=== PATIENT | female | born 1995 | race African-American/Black ===

== ENCOUNTER 2022-02-25 19:25 | Day surgery (SDC) | payer OTHER ==
[2022-02-25 19:45] VITALS: BMI 31.4
[2022-02-25] MEDS ORDERED: hydrALAZINE 20 MG/ML VIAL SLOW IVP PRN (19:52)
[2022-02-25 20:40] LABS: Bilirubin Neg (Negative); Blood, Urine Negative (Negative); Clarity Clear (Clear); Glucose, Urine (Dipstick) Normal (Negative); Ketone, Urine 50 mg/dL (Negative); Leukocyte 100 (Negative); Nitrite Negative (Negative); Protein, Urine (Dipstick) Negative (Neg-Trace); pH, Urine 6.5 (5.0-9.0)
[2022-02-25 20:59] LABS: Bacteria/HPF 2+ HPF (None Seen); Mucous/LPF 1+ LPF (<2+); RBC/HPF None Seen HPF (0-3); Squamous Epithelial 0-3 HPF (0-3); Trichomonas/HPF Rare HPF (None Seen); WBC/HPF 0-3 HPF (0-3)
== END 2022-02-25 22:31 | disposition home or self-care (01) ==
LOC: CSHLD/OP 19:25
PROVIDERS: ATTEND Obstetrics & Gynecology
DX: O99.891 Other specified diseases and conditions complicating pregnancy (principal); R10.9 Unspecified abdominal pain; Z3A.22 22 weeks gestation of pregnancy; Z79.899 Other long term (current) drug therapy; Z88.1 Allergy status to other antibiotic agents
CPT/HCPCS: 76815; 81003; 81015

== ENCOUNTER 2022-03-10 00:47 | Day surgery (SDC) | payer OTHER ==
[2022-03-10 01:23] VITALS: BMI 31.5
[2022-03-10] MEDS ORDERED: hydrALAZINE 20 MG/ML VIAL SLOW IVP PRN (01:35)
[2022-03-10 02:03] LABS: Bilirubin Neg (Negative); Blood, Urine 150 (Negative); Clarity Clear (Clear); Glucose, Urine (Dipstick) Normal (Negative); Ketone, Urine Negative (Negative); Leukocyte 25 (Negative); Nitrite Negative (Negative); Protein, Urine (Dipstick) Negative (Neg-Trace); Urobilinogen Normal mg/dL (Less than 2); pH, Urine 6.5 (5.0-9.0)
[2022-03-10 02:04] LABS: Urine Culture Reflex No No
[2022-03-10 02:18] LABS: Bacteria/HPF Rare-Few HPF (None Seen); RBC/HPF 0-3 HPF (0-3); Squamous Epithelial 0-3 HPF (0-3); WBC/HPF 0-3 HPF (0-3)
[2022-03-10] MEDS ORDERED: CEFAZOLIN 1 GM in Sodium Chloride 0.9% 100 ML IVPB SCH (02:45)
[2022-03-10] MEDS ORDERED: Lactated Ringer's 1,000 ML IV SCH (02:45)
== END 2022-03-10 06:30 | disposition home or self-care (01) ==
LOC: CSHLD/OP 00:47
PROVIDERS: ATTEND Obstetrics & Gynecology
DX: O47.02 False labor before 37 completed weeks of gestation, second trimester (principal); O23.42 Unspecified infection of urinary tract in pregnancy, second trimester; N39.0 Urinary tract infection, site not specified; O32.2XX0 Maternal care for transverse and oblique lie, not applicable or unspecified; Z3A.25 25 weeks gestation of pregnancy; Z91.14 Patient's other noncompliance with medication regimen; Z79.2 Long term (current) use of antibiotics; Z79.899 Other long term (current) drug therapy; Z88.1 Allergy status to other antibiotic agents
CPT/HCPCS: 76815; 81001; 87086; 96360; 96361; 99284

== ENCOUNTER 2022-05-18 19:52 | Day surgery (SDC) | payer OTHER ==
[2022-05-18 20:19] VITALS: BMI 31.1
[2022-05-18] MEDS ORDERED: hydrALAZINE 20 MG/ML VIAL SLOW IVP PRN (20:57)
[2022-05-18 21:33] LABS: #Eosinphils 0.1 10x3/uL (0.0-0.5); #Monocytes 1.1 10x3/uL (0.0-1.1); #Neutrophils 7.7 10x3/uL (1.5-8.4); %Basophils 0.3 % (0.0-2.0); %Eosinophils 0.5 % (0.0-6.0); %Lymphocytes 19.7 % (18.0-47.0); %Monocytes 9.5 % (0.0-10.0); %Neutrophils 68.1 % (40.0-75.0); Hemoglobin 10.3 g/dL (12.0-15.5); Mean Corpuscular HGB CONC 35.2 g/dL (32.0-36.0); Mean Corpuscular Hemoglobin 30.1 pg (27.0-33.0); Mean Corpuscular Volume 85.7 fl (81.6-98.3); Mean Platelet Volume 10.4 fl (7.4-10.4); Platelet Count 173 10x3/uL (150-450); Red Blood Cell (RBC) Count 3.42 10x6/uL (3.90-5.03); White Blood Cell (WBC) Count 11.2 10x3/uL (3.5-10.5)
[2022-05-18 21:41] LABS: ALT (SGPT) 11 U/L (8-55); AST (SGOT) 18 U/L (5-34); Albumin 3.3 g/dL (3.5-5.0); Alkaline Phosphatase 143 U/L (40-110); Anion Gap 13 mmol/L (10-20); BUN (Urea Nitrogen) 7 mg/dL (7.0-18.7); Bilirubin, Total 0.5 mg/dL (0.2-1.2); Calc. Creatinine Clearance 173 mL/min (70-130); Carbon Dioxide 21 mmol/L (22-29); Chloride 104 mmol/L (98-107); Estimated GFR 125; Globulin 3.2 g/dL (2.4-3.5); Glucose 84 mg/dL (70-105); Potassium 3.8 mmol/L (3.5-5.1); Protein, Total 6.5 g/dL (6.0-8.3); Sodium 134 mmol/L (136-145)
[2022-05-18] MEDS ORDERED: Acetaminophen 500 MG TAB PO PRN (22:38)
[2022-05-18] MEDS ORDERED: Ondansetron ODT 4 MG TAB PO PRN (23:21)
== END 2022-05-18 23:15 | disposition home or self-care (01) ==
LOC: CSHLD/OP 19:52
PROVIDERS: ATTEND Obstetrics & Gynecology
DX: O99.891 Other specified diseases and conditions complicating pregnancy (principal); R51.9 Headache, unspecified; H53.8 Other visual disturbances; R42 Dizziness and giddiness; R10.11 Right upper quadrant pain; M54.9 Dorsalgia, unspecified; Z3A.35 35 weeks gestation of pregnancy; Z79.899 Other long term (current) drug therapy; Z88.1 Allergy status to other antibiotic agents
CPT/HCPCS: 36415; 80053; 82570; 84156; 85025; 99283

== ENCOUNTER 2022-06-15 19:30 | Inpatient (IN) | payer OTHER ==
[2022-06-16 01:53] VITALS: BMI 33.5
[2022-06-16] MEDS ORDERED: Lidocaine 1% (PF) 30 ML VIAL SC PRN (02:45)
[2022-06-16] MEDS ORDERED: Acetaminophen 500 MG TAB PO PRN (02:45)
[2022-06-16] MEDS ORDERED: NS w/ Oxytocin 30 units 500 ML IVPB SCH (02:45)
[2022-06-16] MEDS ORDERED: Misoprostol 200 MCG TAB RC PRN (02:45)
[2022-06-16] MEDS ORDERED: Diphenoxylate HCl/Atropine Tablet PO PRN ×2 (02:45)
[2022-06-16] MEDS ORDERED: Ibuprofen 800 MG TAB PO PRN (02:45)
[2022-06-16] MEDS ORDERED: NS w/ Oxytocin 30 units 500 ML IV SCH (02:45)
[2022-06-16] MEDS ORDERED: Carboprost 250 MCG/ML AMP IM PRN (02:45)
[2022-06-16] MEDS ORDERED: hydrALAZINE 20 MG/ML VIAL SLOW IVP PRN ×2 (02:45→20:12)
[2022-06-16] MEDS ORDERED: Promethazine HCl 25 MG/ML VIAL IM PRN ×2 (02:45→13:15)
[2022-06-16] MEDS ORDERED: Methylergonovine 0.2 MG/ML VIAL IM PRN (02:45)
[2022-06-16] MEDS ORDERED: Lactated Ringer's 1,000 ML IV SCH ×2 (02:45)
[2022-06-16] MEDS ORDERED: Ondansetron PF 4 MG/2 ML Vial IVP PRN ×2 (02:45→13:15)
[2022-06-16 02:50] LABS: Hemoglobin 10.5 g/dL (12.0-15.5); Mean Corpuscular HGB CONC 34.3 g/dL (32.0-36.0); Mean Corpuscular Hemoglobin 29.3 pg (27.0-33.0); Mean Corpuscular Volume 85.5 fl (81.6-98.3); Platelet Count 186 10x3/uL (150-450); RBC Distribution Width 13.1 % (11.5-14.5); Red Blood Cell (RBC) Count 3.58 10x6/uL (3.90-5.03); White Blood Cell (WBC) Count 8.1 10x3/uL (3.5-10.5)
[2022-06-16] MEDS ORDERED: Penicillin G Potassium 5 MILL.UNITS in Sodium Chloride 0.9% 100 ML IVPB SCH (03:00)
[2022-06-16] MEDS: Misoprostol 100 MCG TAB PO SCH ×3 (03:01→21:18)
[2022-06-16 03:17] LABS: HBSAg Index 0.27 S/CO (0-0.99); Hep B Surf Ag Non-Reactive S/CO (NonReactive); Syphilis Antibody Nonreactive (Nonreactive); Syphilis Antibody Index 0.05 S/CO (<1.00 Non-Reactive)
[2022-06-16] MEDS ORDERED: Terbutaline Sulfate 1 MG/ML VIAL ONE (04:02)
[2022-06-16] MEDS ORDERED: Bupivacaine 0.25% HCL 30 ML VIAL ONE (08:00)
[2022-06-16] MEDS: PENICILLIN IVPB SCH ×4 (11:44→21:19)
[2022-06-16] MEDS ORDERED: Fentanyl 2 mcg/Bup 0.1% Cadd 100 ML ONE (13:07)
[2022-06-16] MEDS ORDERED: Fentanyl 2 mcg/Bupivacaine 0.1% Cassette 100 ML EPIDURAL SCH (13:15)
[2022-06-16] MEDS ORDERED: Lactated Ringer's 500 ML IV PRN (13:15)
[2022-06-16] MEDS ORDERED: Naloxone HCl 0.4 mg/ml Vial IVP PRN ×2 (13:15)
[2022-06-16] MEDS ORDERED: ePHEDrine Sulfate 50 MG/10 ML VIAL SLOW IVP PRN (13:15)
[2022-06-16] MEDS ORDERED: Moisturizing Cream (Eucerin) 113 GM JAR TOP PRN (13:15)
[2022-06-16] MEDS ORDERED: Acetaminophen 325 MG TAB PO PRN (13:15)
[2022-06-16] MEDS ORDERED: diphenhydrAMINE 50 MG/ML VIAL IVP PRN (13:15)
[2022-06-16] MEDS ORDERED: Communication Order-Pharmacy FS SCH (13:15)
[2022-06-16] MEDS ORDERED: Bisacodyl 10 MG SUPP PR PRN (20:12)
[2022-06-16] MEDS ORDERED: Lanolin Ointment 7 GM TUBE TOP PRN (20:12)
[2022-06-16] MEDS ORDERED: Milk Of Magnesia 30 ML UDCUP PO PRN (20:12)
[2022-06-16] MEDS ORDERED: Boostrix 0.5 ML (Tdap) VIAL IM ONE (20:12)
[2022-06-16] MEDS: HYDROcodone/Acetaminophen 5/325 mg Tablet PO PRN (23:08)
[2022-06-16] MEDS ORDERED: Ibuprofen 800 MG TAB PO SCH (23:15)
[2022-06-17] MEDS: HYDROcodone/Acetaminophen 5/325 mg Tablet PO PRN ×2 (02:24→17:32)
[2022-06-17] MEDS: Ibuprofen 800 MG TAB PO SCH ×2 (05:53→14:15)
[2022-06-17] MEDS: Docusate 100 MG CAP PO SCH ×2 (06:06→08:09)
[2022-06-17] MEDS: Ferrous Sulfate 325 MG TAB PO SCH ×2 (07:09→17:47)
[2022-06-17] MEDS ORDERED: Prenatal Vitamin 1 TAB PO SCH (09:00)
[2022-06-17 16:45] VITALS: BP 90/50; TEMP 97.9
== END 2022-06-17 18:54 | disposition home or self-care (01) | DRG 807 ==
LOC: CSHLD 06-16 01:28 → CSHPP 06-16 20:48
PROVIDERS: ADMIT Family Medicine; ATTEND Family Medicine
PROC: 10E0XZZ Delivery of Products of Conception, External Approach (ICD-10-PCS; principal; 2022-06-16)
PROC: 10907ZC Drainage of Amniotic Fluid, Therapeutic from Products of Conception, Via Natural or Artificial Opening (ICD-10-PCS; 2022-06-16)
PROC: 3E0P7VZ Introduction of Hormone into Female Reproductive, Via Natural or Artificial Opening (ICD-10-PCS; 2022-06-16)
DX: O99.824 Streptococcus B carrier state complicating childbirth (principal); Z37.0 Single live birth; Z3A.39 39 weeks gestation of pregnancy; F32.A Depression, unspecified; O99.344 Other mental disorders complicating childbirth; Z79.899 Other long term (current) drug therapy; Z88.8 Allergy status to other drugs, medicaments and biological substances
CPT/HCPCS: 51702; 85027; 86780; 86850; 86900; 86901; 87340; J0595; J2540; J3490; S0020

== ENCOUNTER 2022-07-31 11:20 | Emergency (ER) | payer OTHER ==
[2022-07-31] MEDS ORDERED: Dexamethasone 10 MG/ML VIAL ONE (12:34)
== END 2022-07-31 12:32 | disposition home or self-care (01) ==
LOC: CSHERS 11:20
DX: B34.9 Viral infection, unspecified (principal)
CPT/HCPCS: 99283; J1100